=== PATIENT | female | born 1970 | race Caucasian/White ===

== ENCOUNTER 2020-03-09 04:09 | Emergency (ER) | payer MEDICAID ==
[~2020-03-09] VITALS: Ht 154.9 cm; Wt 89.4 kg
[2020-03-09 04:20] VITALS: BP 174/103
--- NOTE | 2020-03-09 04:25 | NUR ---
PT AMBULATED TO BED 12
--- NOTE | 2020-03-09 04:40 | NUR ---
49F C/O PAIN IN UPPER ABDOMEN THAT RADIATES TO UPPER BACK. NO DIARRHEA.PT HAS ONE EPISODE OF VOMITING AT 0435 TODAY AND IS NAUSEOUS. NO SOB, FEVER. PT HAS NO MED HX AND NO RX MEDS ALLX: DENIES.
[2020-03-09 05:05] LABS: APPEARANCE,URINE SL CLOUDY (CLEAR); BILIRUBIN,URINE NEGATIVE (NEGATIVE); BLOOD, URINE 2+ (NEGATIVE); COLOR,URINE YELLOW (YELLOW); LEUKOCYTE ESTERASE ,URINE TRACE (NEGATIVE); NITRITE, URINE NEGATIVE (NEGATIVE); UGLUCOSE NEGATIVE (NEGATIVE)
[2020-03-09 05:10] LABS: BASOPHILS % (AUTO) 0.4 % (0.0-2.0); EOSINOPHILS # (AUTO) 0.1 K/uL (0-0.4); HEMATOCRIT 37.6 % (36-48); HEMOGLOBIN 12.2 g/dL (12.0-16.0); LYMPHOCYTES # (AUTO) 3.7 K/uL (2.5-16.5); LYMPHOCYTES % (AUTO) 35.8 % (20.5-51.1); MEAN CORPUSCULAR HEMOGLOBIN 27 pg (27-31); MEAN CORPUSCULAR HGB CONC 33 g/dL (33-37); MEAN CORPUSCULAR VOLUME 84.3 fL (80-94); MONOCYTES # (AUTO) 0.7 K/uL (0.8-1.0); MONOCYTES % (AUTO) 7.2 % (1.7-9.3); NEUTROPHILS # (AUTO) 5.8 K/uL (1.8-7.7); NEUTROPHILS % (AUTO) 55.6 % (42.2-75.2); PLATELET COUNT (AUTO) 321 K/uL (140-450); RED BLOOD CELL COUNT(AUTO) 4.46 MIL/uL (4.20-5.40); RED CELL DISTRIBUTION WIDTH 15.8 % (11.6-13.7); WHITE BLOOD COUNT (AUTO) 10.4 K/uL (4.8-10.8)
[2020-03-09] MEDS ORDERED: MORPHINE SULFATE 4 MG/ML SYR IVP ONE (05:10)
[2020-03-09] MEDS ORDERED: ONDANSETRON 4 MG/2 ML VIAL IVP ONE (05:10)
[2020-03-09] MEDS ORDERED: KETOROLAC 15 MG/ML VIAL IVP ONE (05:10)
[2020-03-09 05:12] LABS: ALBUMIN 3.2 g/dL (3.4-5.0); ANION GAP 12.7 (8-16); CARBON DIOXIDE 28.1 mmol/L (21-32); CREATININE 0.8 mg/dL (0.6-1.3); POTASSIUM 3.8 mmol/L (3.5-5.1); TOTAL BILIRUBIN 0.2 mg/dL (0.0-1.0)
--- NOTE | 2020-03-09 05:33 | NUR ---
PT MEDICATED WITH TORADOL AND MORPHINE FOR PAIN. ZOFRAN FOR NAUSEA AND VOMITING. BED RAILS UP X1. LOWEST AND LOCKED. NO FURTHER NEEDS AT THIS TIME
[2020-03-09] MEDS ORDERED: NACL 0.9% 1,000 ML IV ONE (05:35)
--- NOTE | 2020-03-09 06:07 | NUR ---
US AT BEDSIDE.
[2020-03-09 06:29] VITALS: BP 134/77
--- NOTE | 2020-03-09 06:30 | NUR ---
PT RESTING IN BED COMFORTABLY. NO FURTHER NEEDS AT THIS TIME. BED LOWEST AND LOCKED, RAILS UP X 1. VSS
== END 2020-03-09 07:00 | disposition home or self-care (01) ==
LOC: MED 04:09
DX: K80.20 Calculus of gallbladder without cholecystitis without obstruction (principal); K76.0 Fatty (change of) liver, not elsewhere classified; I10 Essential (primary) hypertension; R73.9 Hyperglycemia, unspecified; E88.09 Other disorders of plasma-protein metabolism, not elsewhere classified
CPT/HCPCS: 36415; 76705; 80053; 81001; 81025; 83690; 84484; 85025; 87086; 93005; 96361; 96374; 96375; 99285; J1885; J2270; J2405; J7030; Q0092

== ENCOUNTER 2020-09-03 09:56 | Emergency (ER) | payer MEDICAID ==
[~2020-09-03] VITALS: Ht 154.9 cm; Wt 88.5 kg
[2020-09-03 10:03] VITALS: BP 145/94
--- NOTE | 2020-09-03 10:09 | NUR ---
Ambulated to bed 3
--- NOTE | 2020-09-03 10:17 | NUR ---
49 y/o female from home c/o epigastric pain radiating to lower back x 1 wk. Pt states 3 episodes of vomiting and diarrhea. 9/10 constant cramping pain. Abd soft, round, nontender to palp. Bowel sounds active x 4 quadrants. Positioned for comfort, VSS medhx: DM
--- NOTE | 2020-09-03 10:23 | NUR ---
Dr Berg at bedside examining pt
[2020-09-03] MEDS ORDERED: ONDANSETRON 4 MG/2 ML VIAL IVP ONE (10:30)
[2020-09-03] MEDS ORDERED: MORPHINE SULFATE 4 MG/ML SYR IVP ONE ×2 (10:30→13:10)
--- NOTE | 2020-09-03 10:35 | NUR ---
20G IV placed to left AC, blood drawn at this time.
--- NOTE | 2020-09-03 10:46 | NUR ---
Ultrasound at bedside
[2020-09-03 11:15] LABS: BASOPHILS # (AUTO) 0.1 K/uL (0.00-0.22); BASOPHILS % (AUTO) 0.7 % (0.0-2.0); EOSINOPHILS # (AUTO) 0.1 K/uL (0-0.4); EOSINOPHILS % (AUTO) 1.3 % (0.0-4.0); HEMATOCRIT 32.3 % (36-48); HEMOGLOBIN 10.3 g/dL (12.0-16.0); LYMPHOCYTES # (AUTO) 2.4 K/uL (2.5-16.5); MEAN CORPUSCULAR HEMOGLOBIN 23 pg (27-31); MEAN CORPUSCULAR HGB CONC 32 g/dL (33-37); MEAN CORPUSCULAR VOLUME 72.1 fL (80-94); MONOCYTES # (AUTO) 0.6 K/uL (0.8-1.0); MONOCYTES % (AUTO) 6.1 % (1.7-9.3); NEUTROPHILS # (AUTO) 6.5 K/uL (1.8-7.7); NEUTROPHILS % (AUTO) 66.9 % (42.2-75.2); PLATELET COUNT (AUTO) 357 K/uL (140-450); RED BLOOD CELL COUNT(AUTO) 4.47 MIL/uL (4.20-5.40); RED CELL DISTRIBUTION WIDTH 17.8 % (11.6-13.7); WHITE BLOOD COUNT (AUTO) 9.8 K/uL (4.8-10.8)
[2020-09-03 11:28] LABS: ALBUMIN 3.1 g/dL (3.4-5.0); ANION GAP 12.9 (8-16); CARBON DIOXIDE 26.6 mmol/L (21-32); CREATININE 0.7 mg/dL (0.6-1.3); POTASSIUM 3.5 mmol/L (3.5-5.1); TOTAL BILIRUBIN 0.3 mg/dL (0.0-1.0)
--- NOTE | 2020-09-03 11:33 | NUR ---
Pt resting with eyes closed, visible rise and fall of the chest. Denies pain at this time. X 1 side rail raised, bed locked and in lowest position. VSS
[2020-09-03 12:11] LABS: BILIRUBIN,URINE NEGATIVE (NEGATIVE); BLOOD, URINE TRACE-L (NEGATIVE); COLOR,URINE YELLOW (YELLOW); LEUKOCYTE ESTERASE ,URINE NEGATIVE (NEGATIVE); NITRITE, URINE NEGATIVE (NEGATIVE); PH,URINE 5.5 (5.0-9.0); UGLUCOSE NEGATIVE (NEGATIVE)
[2020-09-03 12:20] LABS: APPEARANCE,URINE SLIGHTLY HAZY (CLEAR); RBC,URINE 0-5 /HPF (0-5); WBC,URINE 0-5 /HPF (0-5)
[2020-09-03 13:59] VITALS: BP 134/78
--- NOTE | 2020-09-03 13:59 | NUR ---
IV removed, 2x2 gauze placed to IV site. Bleeding controlled at this time
--- NOTE | 2020-09-03 14:00 | NUR ---
Patient discharged with v/s stable. Written and verbal after care instructions given and explained. Patient alert, oriented and verbalized understanding of instructions. Ambulatory with steady gait. All questions addressed prior to discharge. ID band removed. Patient advised to follow up with PMD. Rx of Zofran 4mg and [place] 5mg-325mg given. Patient educated on indication of medication including possible reaction and side effects. Opportunity to ask questions provided and answered.
== END 2020-09-03 14:00 | disposition home or self-care (01) ==
LOC: MED 09:56
DX: K80.20 Calculus of gallbladder without cholecystitis without obstruction (principal); R10.13 Epigastric pain; R11.2 Nausea with vomiting, unspecified; E11.9 Type 2 diabetes mellitus without complications
CPT/HCPCS: 36415; 76705; 80053; 81001; 83690; 84703; 85025; 96374; 96375; 96376; 99284; J2270; J2405; Q0092

== ENCOUNTER 2020-09-13 18:10 | Inpatient (IN) | payer MEDICAID, SELFPAY ==
[~2020-09-13] VITALS: Ht 154.9 cm; Wt 84.8 kg
[2020-09-13 18:12] VITALS: BP 166/92
[2020-09-13] MEDS ORDERED: NACL 0.9% 1,000 ML IV ONE (18:25)
[2020-09-13] MEDS ORDERED: MORPHINE SULFATE 4 MG/ML SYR IVP ONE (18:25)
[2020-09-13] MEDS ORDERED: ONDANSETRON 4 MG/2 ML VIAL IVP ONE (18:25)
[2020-09-13 18:53] LABS: BASOPHILS % (AUTO) 0.4 % (0.0-2.0); EOSINOPHILS % (AUTO) 0.1 % (0.0-4.0); HEMATOCRIT 35.1 % (36-48); LYMPHOCYTES % (AUTO) 10.3 % (20.5-51.1); MEAN CORPUSCULAR HEMOGLOBIN 23 pg (27-31); MEAN CORPUSCULAR HGB CONC 31 g/dL (33-37); MEAN CORPUSCULAR VOLUME 72.9 fL (80-94); MONOCYTES # (AUTO) 0.5 K/uL (0.8-1.0); MONOCYTES % (AUTO) 4.9 % (1.7-9.3); NEUTROPHILS # (AUTO) 8.3 K/uL (1.8-7.7); NEUTROPHILS % (AUTO) 84.3 % (42.2-75.2); PLATELET COUNT (AUTO) 439 K/uL (140-450); RED BLOOD CELL COUNT(AUTO) 4.82 MIL/uL (4.20-5.40); RED CELL DISTRIBUTION WIDTH 18.7 % (11.6-13.7); WHITE BLOOD COUNT (AUTO) 9.8 K/uL (4.8-10.8)
--- NOTE | 2020-09-13 18:56 | NUR ---
PT STILL UNABLE TO URINATE, ERMD AWARE
--- NOTE | 2020-09-13 18:57 | NUR ---
49 YEAR OLD FEMALE COMPLAINS OF SEVERE ABDOMINAL PAIN THAT RADIATES TO BACK SINCE 3PM. PT ALSO COMPLAINS OF NAUSEA AND VOMITTING TODAY. PT STATES IT IS SIMILAR TO PREVIOUS GALLSTONE PAIN. PT AOX4, BREATHING EVEN AND UNLABORED, SKIN WARM AND DRY. BED IN LOWEST POSITION, LOCKED, BED RAIL UPX1. PMH - DM2, GALLSTONE ALLERGIES - NKA
--- NOTE | 2020-09-13 19:13 | NUR ---
REPORT GIVEN TO ROBIN WILLIAMSON, TRANSFER OF CARE AT THIS TIME.
--- NOTE | 2020-09-13 19:13 | NUR ---
RECEIVED REPORT FROM CARMEN WILLIAMSON
[2020-09-13 19:14] LABS: ALBUMIN 3.2 g/dL (3.4-5.0); ANION GAP 12.5 (8-16); CARBON DIOXIDE 28.4 mmol/L (21-32); CREATININE 0.8 mg/dL (0.6-1.3); POTASSIUM 3.9 mmol/L (3.5-5.1); TOTAL BILIRUBIN 0.9 mg/dL (0.0-1.0)
--- NOTE | 2020-09-13 19:19 | NUR ---
PT STILL C/O OF SEVERE UPPER ABD PAIN 07/02, MD Byrd AWARE.
[2020-09-13] MEDS ORDERED: KETOROLAC 30 MG/ML VIAL ONE (19:22)
--- NOTE | 2020-09-13 19:27 | NUR ---
TONI WARD EXAMINING PT
[2020-09-13] MEDS ORDERED: KETOROLAC 30 MG/ML VIAL IVP SCH (19:30)
--- NOTE | 2020-09-13 20:00 | NUR ---
PT STILL UNABLE TO PROVIDE UA. AWARE WE NEED URINE SPECIMEN
[2020-09-13] MEDS ORDERED: guaiFENesin DM 200/20 MG-10 ML 10 ML UDC PO PRN (20:05)
[2020-09-13] MEDS ORDERED: ACETAMINOPHEN 325 MG TAB PO PRN (20:05)
[2020-09-13] MEDS ORDERED: DOCUSATE SODIUM 100 MG GELCAP PO PRN (20:05)
[2020-09-13] MEDS ORDERED: HYDROcodone/APAP 7.5/325 MG 1 TAB PO PRN (20:05)
[2020-09-13] MEDS ORDERED: ZOLPIDEM 5 MG TAB PO PRN (20:05)
--- NOTE | 2020-09-13 20:11 | NUR ---
PT STATES PAIN IS BETTER AT THIS TIME
[2020-09-13] MEDS ORDERED: METF500T PO (20:16)
[2020-09-13] MEDS ORDERED: MELO7.5T11 PO (20:17)
--- NOTE | 2020-09-13 20:20 | NUR ---
X-RAY AT BEDSIDE
--- NOTE | 2020-09-13 20:24 | NUR ---
DR. MARTINEZ EXAMINING PATIENT
--- NOTE | 2020-09-13 20:27 | NUR ---
DR. LAGUNAS EXAMINING PATIENT
--- NOTE | 2020-09-13 20:32 | NUR ---
PT TAKEN TO CT
[2020-09-13 20:39] LABS: PROTHROMBIN TIME 9.4 secs (10.8-13.4)
--- NOTE | 2020-09-13 20:45 | NUR ---
PT RETURN FROM CT
--- NOTE | 2020-09-13 20:50 | NUR ---
Patient will be admitted to care of [facility]. Admited to MED/SURG. Will go to room 104B. Belongings list completed. Report to JÚNIOR WILLIAMSON.
[2020-09-13 20:52] LABS: CHOL/HDL RATIO 6.3 (1-4.5); FREE T4 (FREE THYROXINE) 1.63 ng/dL (0.76-1.46); MAGNESIUM 2.1 mg/dL (1.8-2.4); PHOSPHORUS 4.1 mg/dL (2.5-4.9); THYROID STIMULATING HORMONE 0.64 uIU/mL (0.34-3.74)
[2020-09-13 20:55] VITALS: BP 150/80
--- NOTE | 2020-09-13 20:55 | NUR ---
RECEIVED PT FROM ER / WHEEL CHAIR ,AAOX4 , NID - O2 SAT WNL . IV SITE INTACT AND PATENT . AMBULATES TO BED . SAFETY MEASURES IN PLACE , C/O ABDL. PAIN - WILL REFER TO DR. MARTINEZ . NPO - RE EMPHASIZE , ADMISSION ASSESSMENT - DONE - MRSA SPECIMEN SENT TO LAB . PLAN OF CARE DISCUSSED AND VERBALIZE UNDERSTANDING . FOR URINE COLLECTION - REMIND THE PATIENT . CALL LIGHT WITHIN REACH . WILL CONT. TO MONITOR .
[2020-09-13] MEDS: DEXT 5% /NACL 0.9% 1,000 ML IV SCH (22:00)
[2020-09-13] MEDS ORDERED: DEXTROSE 50% 50 ML SYR IVP PRN (22:20)
[2020-09-13] MEDS: MORPHINE SULFATE 2 MG/ML SYR IVP PRN (22:38)
--- NOTE | 2020-09-13 22:38 | NUR ---
MORPHINE 2 MG TIV GIVEN FOR ABDL. PAIN ORDERED BY DR. MARTINEZ - WILL RE ASSESS.
--- NOTE | 2020-09-13 23:00 | NUR ---
HGT 173 - NPO
[2020-09-13] MEDS: ONDANSETRON 4 MG/2 ML VIAL IM/IVP PRN (23:01)
[2020-09-14] VITALS: BP 150/85
[2020-09-14] MEDS ORDERED: HYDROmorphone 1 MG/ML AMP IVP SCH (00:31)
--- NOTE | 2020-09-14 00:50 | NUR ---
STILL C/O ABDL . PAIN - WE REFER TO DR. MARTINEZ .
--- NOTE | 2020-09-14 01:06 | NUR ---
DILAUDID 1MG TIV GIVEN STAT ORDERED BY DR. MARTINEZ - WILL RE ASSESS . CALL LIGHT WITHIN REACH
--- NOTE | 2020-09-14 02:00 | NUR ---
MADE ROUNDS , SHE SAID THE PAIN NOW IS MINIMIZE FROM 9 TO 6 SHE RATING THE PAIN - WILL CONT. TO MONITOR .
[2020-09-14 04:00] VITALS: BP 147/82
--- NOTE | 2020-09-14 04:00 | NUR ---
MADE ROUNDS , NO S/SX OF ACUTE DISTRSS NOTED , C/O ABDL. PAIN - WILL MEDICATE .
[2020-09-14 05:09] LABS: BASOPHILS % (AUTO) 0.2 % (0.0-2.0); EOSINOPHILS % (AUTO) 0.2 % (0.0-4.0); HEMATOCRIT 33.6 % (36-48); HEMOGLOBIN 10.6 g/dL (12.0-16.0); LYMPHOCYTES # (AUTO) 1.4 K/uL (2.5-16.5); LYMPHOCYTES % (AUTO) 14.6 % (20.5-51.1); MEAN CORPUSCULAR HEMOGLOBIN 23 pg (27-31); MEAN CORPUSCULAR HGB CONC 32 g/dL (33-37); MEAN CORPUSCULAR VOLUME 72.8 fL (80-94); MONOCYTES # (AUTO) 0.6 K/uL (0.8-1.0); MONOCYTES % (AUTO) 6.2 % (1.7-9.3); NEUTROPHILS # (AUTO) 7.7 K/uL (1.8-7.7); NEUTROPHILS % (AUTO) 78.8 % (42.2-75.2); PLATELET COUNT (AUTO) 364 K/uL (140-450); RED BLOOD CELL COUNT(AUTO) 4.61 MIL/uL (4.20-5.40); RED CELL DISTRIBUTION WIDTH 18.2 % (11.6-13.7); WHITE BLOOD COUNT (AUTO) 9.8 K/uL (4.8-10.8)
[2020-09-14] MEDS: MORPHINE SULFATE 2 MG/ML SYR IVP PRN ×3 (05:25→20:38)
[2020-09-14 05:50] LABS: ALBUMIN 2.8 g/dL (3.4-5.0); ANION GAP 18.5 (8-16); CARBON DIOXIDE 27.4 mmol/L (21-32); CREATININE 0.7 mg/dL (0.6-1.3); POTASSIUM 3.9 mmol/L (3.5-5.1); TOTAL BILIRUBIN 1.4 mg/dL (0.0-1.0)
[2020-09-14] MEDS: BLOOD GLUCOSE MONITORING 1 DEV DEV FS SCH ×4 (05:56→20:47)
--- NOTE | 2020-09-14 06:00 | NUR ---
MADE ROUNDS , SHE SAID THE PAIN MINIMIZE AT THIS TIME . NO S/SX OF ACUTE DISTRESS NOTED . CALL LIGHT WITHIN REACH .
[2020-09-14] MEDS: DEXT 5% /NACL 0.9% 1,000 ML IV SCH ×3 (06:29→20:42)
[2020-09-14 06:39] LABS: APPEARANCE,URINE BLOODY (CLEAR); BILIRUBIN,URINE 2+ (NEGATIVE); BLOOD, URINE 3+ (NEGATIVE); COLOR,URINE RED (YELLOW); LEUKOCYTE ESTERASE ,URINE 1+ (NEGATIVE); NITRITE, URINE POSITIVE (NEGATIVE); UGLUCOSE NEGATIVE (NEGATIVE)
--- NOTE | 2020-09-14 06:39 | NUR ---
PATIENT HAS BEEN SCREENED AND CATEGORIZED MODERATE NUTRITION RISK. PATIENT WILL BE SEEN WITHIN 3-5 DAYS OF ADMISSION. 09/16/20 09/18/[address]
[2020-09-14 06:42] LABS: RBC,URINE >100 /HPF (0-5); WBC,URINE 80-100 /HPF (0-5)
[2020-09-14 07:06] LABS: BARBITURATE, URINE NEGATIVE ng/ml (NEG <=200); BENZODIAZEPINE, URINE NEGATIVE ng/mL (NEG <=200); CANNABINOID, URINE NEGATIVE ng/mL (NEG <=50); COCAINE, URINE NEGATIVE ng/mL (NEG <=300); PHENCYCLIDINE SCREEN,URINE NEGATIVE ng/mL (NEG <=25)
[2020-09-14 07:07] LABS: OPIATE, URINE POSITIVE ng/mL (NEG <=2000)
--- NOTE | 2020-09-14 07:15 | NUR ---
ENDORSED TO AM SHIFT - PT - STABLE . FOR CONSENT . PREG . TEST NOT DONE - BEC. PT HAS MONTHLY PERIOD .
--- NOTE | 2020-09-14 07:15 | NUR ---
RECEIVED REPORT FROM PIT WORKER POWER SHOVEL RN FOR CONTINUITY OF CARE. PT IS STABLE. RECEIVING IVF. SAFETY MEASURES IN PLACE. WILL CONTINUE WITH POC.
[2020-09-14 08:00] VITALS: BP 162/90
[2020-09-14] MEDS: metFORMIN 500 MG TAB PO SCH ×2 (08:00→17:13)
--- NOTE | 2020-09-14 08:30 | NUR ---
PT IS AWAKE, ALERT ORIENTED X 4, REPORTING SOME DISCOMFORT. PO MEDICATION HELD DUE TO NPO STATUS. V/S: 96.9, 91, 16, 162/90, 95% RA PAIN 0/10. LUNG SOUND CLEAR, ABD IS ROUND AND TENDER TO EPIGASTRIC AND RUQ AREA. BS ACTIVE X 4 PT REMAINS NPO. SKIN INTACT PT OBSERVED WITH IV SITE LEFT AC THAT IS INTACT AND PATENT AND LEFT HAND THAT IS ALSO INTACT AND PATENT AND RECEIVING IVF. PT ASSESSED BY MEDICAL STUDENT.
[2020-09-14] MEDS: PANTOPRAZOLE 40 MG TABEC PO SCH (08:37)
--- NOTE | 2020-09-14 10:45 | NUR ---
OBTAIN CONSENT FOR PROCEDURE PT HAD NO QUESTIONS AND VERBALIZED UNDERSTANDING. B/P RECHECK WAS 164/81 P 107 WILL NOTIFY MD Phil Case HERE TO PICK HER UP. PT RECEIVED ROCEPHIN IVPB AND COVID GASTON ROUTED TO LAB. PT RECEIVED MORPHINE AT 0930 DUE TO ELEVATED PAIN 07/02. PT LEFT AT THIS TIME.
[2020-09-14] MEDS ORDERED: METOCLOPRAMIDE 10 MG/2 ML INJ VIAL ONE (11:12)
[2020-09-14] MEDS ORDERED: PROPOFOL 200 MG/20 ML VIAL IV ONE (11:12)
[2020-09-14] MEDS ORDERED: SUGAMMADEX SODIUM 200 MG/2 ML VIAL IV ONE (11:12)
[2020-09-14] MEDS ORDERED: ROCURONIUM 50 MG/5 ML VIAL IV ONE (11:12)
[2020-09-14] MEDS ORDERED: KETOROLAC 30 MG/ML VIAL ONE (11:12)
[2020-09-14] MEDS ORDERED: MIDAZOLAM 2 MG/2 ML VIAL ONE (11:12)
[2020-09-14] MEDS ORDERED: SUCCINYLCHOLINE CHLORIDE 200 MG/10 ML VIAL IVP ONE (11:12)
[2020-09-14] MEDS ORDERED: LIDOCAINE 2% 100 MG/5 ML SYR IVP ONE (11:12)
[2020-09-14] MEDS ORDERED: fentaNYL citrate 0.05 MG/ML VIAL ONE (11:12)
[2020-09-14] MEDS ORDERED: LIDOCAINE 1% 500 MG/50 ML VIAL ONE (11:20)
[2020-09-14] MEDS ORDERED: BUPIVACAINE-MPF 0.25% 30 ML VIAL INJ ONE (11:20)
--- NOTE | 2020-09-14 11:38 | NUR ---
DISCHARGE PLANNING: THIS IS A 49 Y/O FEMALE PATIENT FROM HOME, WHO CAME IN DUE TO WORSENING EPIGASTRIC PAIN. PAST MEDICAL HISTORY INCLUDE DIABETES AND KNEE ARTHRITIS. INITIAL DIAGNOSIS OF GALLSTONES, PANCREATITIS. CURRENT LABS INCLUDE WBC 9.8, H/H 10.6/33.6, NA/K 145/3.9, BUN/CREA 15/0.7. UDS SHOWED POSITIVE FOR OPIATES. ON ROCEPHIN. SURGICAL CONSULT IN PLACE. DC PLAN BACK TO HOME ONCE STABLE. Addendum: 09/18/20 at 1049 by Ivette Duval CM S/P LAP JONNY +INTRAOPERATIVE CHOLANGIOGRAM, C ARM FLUOROSCOPY AND LYSIS OF ADHESIONS BY DR. LAGUNAS 09/14/1240. ON ZOSYN. CURRENT LABS INCLUDE WBC 15.4, H/H 9.3/30.3, NA/K 138/3.4, BUN/CREA 5/0.7, LIPASE 59. BLOOD CS PENDING. CT ABD/PELVIS SHOWED EDEMA INFLAMMATION IN THE DUODENAL SWEEP WITH ADDITIONAL AREAS OF EDEMA INFLAMMATION, THIS COULD REFLECT CHANGES OF AN ACUTE PANCREATITIS. Addendum: 09/19/20 at 1102 by Ivette Duval CM FOR DC TODAY AFTER 1800 DOSE OF ANTIBIOTIC.
--- NOTE | 2020-09-14 11:41 | NUR ---
SOCIAL WORK NOTE: Patient's Orientation Unable To Assess Information Provided By GRADY FABIEN - DAUGHTER Comments SW WAS UNABLE TO MEET PATIENT AT BEDSIDE DUE TO MEDICAL CONDITION. SW COMPLETED ASSESSMENT WITH PATIENT'S DAUGHTER, GRADY. [place] Operator, Realtionship and Phone Number GRADY CONN DAUGHTER [phone] Healthcare Power of Winder Fixer No Does Patient Have a POLST No Identifying Problems No Social Work Triggers Is A Social Work Consult Needed No Mandate Report Filed No Explanation Of Identifying Problems PATIENT IS A 49-YEAR-OLD FEMALE ADMITTED FOR GALLSTONES AND PANCREATITIS. PATIENT HAS PMHX OF DIABETES. PATIENT'S DAUGHTER REPORTED NO HISTORY OF SUBSTANCE ABUSE OR MENTAL HEALTH. Admitted From Home Pre-Admission Level Of Functioning Status Independent/Ambulatory Prior Resources/Services Used In Last 12 Months No Prior Resources Used Prior DME No Prior DME Used Dialysis Comments PER DAUGHTER, DAUGHTER REPORTED NO DIALYSIS. Living Situation Lives With Family House Patient Had Caregiver No Home Support No Caregiver Issues Financial Issues No Known Financial Issue Referral To The Financial Counselor Needed No Factors/Needs No D/C Needs Identified Explanation And Or Other Factors Affecting/Possible DC Needs PATIENT'S DAUGHTER: GRADY CONN WILL PICK PATIENT UP. Pt/Rep Participated In Discharge Plan Yes Patient/Family Agress With Discharge Plan Yes Discharge Plan Comments TENTATIVE DISCHARGE PLAN IS FOR PATIENT TO RETURN HOME. DC Plan Status Initiated
[2020-09-14] MEDS ORDERED: ONDANSETRON 4 MG/2 ML VIAL IVP PRN (12:25)
[2020-09-14] MEDS ORDERED: HYDROmorphone 1 MG/ML AMP IVP PRN (12:25)
[2020-09-14 13:40] VITALS: BP 125/65
--- NOTE | 2020-09-14 13:45 | NUR ---
RETURNED AT THIS TIME PT IS STABLE IN NO DISTRESS. DENIES ANY PAIN. V/S: 97.8, 113, 18, 125/65, 95% RA PAIN 0/10 PT HAS LA CATH IN PLACE THAT IS DRAINING ADRIEL URINE. NO SOB PT VERBALIZE DESIRE TO CALL DAUGHTER. PT RECONNECTED TO IVF WITH NO ISSUES. ALL NEEDS MET
[2020-09-14 16:00] VITALS: BP 122/81
--- NOTE | 2020-09-14 16:30 | NUR ---
PT RESTING IN BED DENIES ANY DISTRESS PT HAS 4 INCISION SITES COVERED WITH BANDAGE NO DRAINING CLEAN DRY AND INTACT. V/S: 97.0, 101, 18, 122/81, 95% RA PAIN 0/10. BS 163 AND GOT 2 UNITS OF HUMALOG.
[2020-09-14] MEDS: INSULIN LISPRO SLIDING SCALE 100 UNITS/ML VIAL SUBQ PRN ×2 (17:24→21:47)
--- NOTE | 2020-09-14 18:20 | NUR ---
PT STABLE IN NO DISTRESS
--- NOTE | 2020-09-14 19:20 | NUR ---
REPORT GIVEN TO AM RN FOR CONTINUITY OF CARE. DURING REPORT PT VERBALIZED PAIN WAS STARTED WILL ENDORSE TO SUPERVISOR MOLDING TO GIVE PAIN MGMT.
--- NOTE | 2020-09-14 19:30 | NUR ---
RECEIVED REPORT AND CONTINUITY OF CARE FROM AM NURSE.
--- NOTE | 2020-09-14 21:15 | NUR ---
UPON PHYSICAL ASSESSMENT, PT IS A/OX4, RUSSIAN SPEAKING AND ABLE TO MAKE NEEDS KNOW, GCS 15. HEAD IS ROUND, NORMOCEPHALIC, FACE IS UNIFORMED, SYMMETRICAL, ALIGNED EYEBROWS AND SMILE, PMMM, SCLERA WHITE, PERRL. TRACHEA IS PLACE IN THE MIDLINE OF THE NECK, NO JVD PRESENT. CHEST IS SYMMETRICAL, LUNGS ARE CTAX4, ON INSPIRATION AND EXPIRATION. S1, S2 HEART TONES NOTED. BOWEL TONES ARE ACTIVE IN FOUR QUADRANTS. ABD IS FLAT AND NONTENDER. SKIN IS SMOOTH, WARM, DRY, AND INTACT. NAILS ARE CLEAN, INTACT, CAP REFILL IS LESS THAN 3 SECONDS, NO CLUBBING OR CYANOSIS NOTED. EQUAL AND BILATERAL PEDAL PULSES NOTED. ADMINISTERED SCHEDULED MEDICATION. EDUCATION RENDERED. SAFETY PRECAUTIONS IN PLACE.
--- NOTE | 2020-09-14 23:23 | NUR ---
PT IS SLEEPING. NO SIGNS OF DISTRESS NOTED.
--- NOTE | 2020-09-15 01:00 | NUR ---
PT SLEEPING. NO SIGNS OF DISTRESS NOTED AT THIS TIME.
[2020-09-15] MEDS: MORPHINE SULFATE 2 MG/ML SYR IVP PRN ×3 (02:01→09:41)
--- NOTE | 2020-09-15 03:15 | NUR ---
PT IS SLEEPING. VISIBLE CHEST RISE NOTED.
--- NOTE | 2020-09-15 04:38 | NUR ---
URINE CULTURE OBTAINED AND SENT TO LAB.
--- NOTE | 2020-09-15 05:51 | NUR ---
PT IS SLEEPING. NO SIGNS OF DISTRESS NOTED.
[2020-09-15] MEDS: DEXT 5% /NACL 0.9% 1,000 ML IV SCH ×3 (06:30→16:53)
[2020-09-15 06:31] LABS: BASOPHILS % (AUTO) 0.1 % (0.0-2.0); EOSINOPHILS # (AUTO) 0.1 K/uL (0-0.4); EOSINOPHILS % (AUTO) 0.4 % (0.0-4.0); HEMATOCRIT 30.7 % (36-48); HEMOGLOBIN 9.4 g/dL (12.0-16.0); LYMPHOCYTES # (AUTO) 1.2 K/uL (2.5-16.5); LYMPHOCYTES % (AUTO) 7.3 % (20.5-51.1); MEAN CORPUSCULAR HEMOGLOBIN 23 pg (27-31); MEAN CORPUSCULAR HGB CONC 31 g/dL (33-37); MEAN CORPUSCULAR VOLUME 74.2 fL (80-94); MONOCYTES # (AUTO) 0.9 K/uL (0.8-1.0); MONOCYTES % (AUTO) 5.9 % (1.7-9.3); NEUTROPHILS # (AUTO) 13.7 K/uL (1.8-7.7); NEUTROPHILS % (AUTO) 86.3 % (42.2-75.2); PLATELET COUNT (AUTO) 335 K/uL (140-450); RED BLOOD CELL COUNT(AUTO) 4.14 MIL/uL (4.20-5.40); RED CELL DISTRIBUTION WIDTH 19.1 % (11.6-13.7); WHITE BLOOD COUNT (AUTO) 15.9 K/uL (4.8-10.8)
[2020-09-15] MEDS: BLOOD GLUCOSE MONITORING 1 DEV DEV FS SCH ×4 (06:31→20:21)
--- NOTE | 2020-09-15 07:15 | NUR ---
RECEIVED PATIENT FROM NIGHT NURSE. PATIENT IN BED AWAKE AND ALERT. VIETNAMESE SPEAKING ONLY BUT ABLE TO MAKE NEEDS KNOWN. PATIENT S/P LAP JONNY. RESP EVEN AND UNLABORED ON ROOM AIR. LAC 20G, LH 24G INFUSING NS 120ML/HR. C/O PAIN TO ABDOMEN BUT TOLERABLE. PLAN OF CARE DISCUSSED WITH PATIENT, PATIENT NODDED UNDERSTANDING. CALL LIGHT WITHIN REACH. WILL CONTINUE TO MONITOR.
[2020-09-15 08:00] VITALS: BP 150/91
[2020-09-15 08:00] LABS: ALBUMIN 2.2 g/dL (3.4-5.0); ANION GAP 12.9 (8-16); CARBON DIOXIDE 24.4 mmol/L (21-32); CREATININE 0.6 mg/dL (0.6-1.3); POTASSIUM 3.3 mmol/L (3.5-5.1)
[2020-09-15 09:06] LABS: T4 (THYROXINE) 11.9 ug/dL (4.5-12.0)
[2020-09-15] MEDS: PANTOPRAZOLE 40 MG TABEC PO SCH (09:13)
[2020-09-15] MEDS: metFORMIN 500 MG TAB PO SCH ×2 (09:13→16:42)
[2020-09-15] MEDS: POTASSIUM CHLORIDE 10 MEQ TABER PO PRN (09:18)
--- NOTE | 2020-09-15 09:34 | NUR ---
MORNING ROUTINE MEDICATIONS GIVEN. PATIENT IN BED RESTING. RESP EVEN AND UNLABORED. PT C/O PAIN AT ABD AT THIS TIME WITH FACIAL GRIMACE. TACHYCARDIA NOTED 126 WITH BP 150/91. MORPHINE GIVEN PRN. LUNGS SOUNDS CLEAR, BOWEL SOUNDS HYPOACTIVE. 4 INCISIONS NOTED ON ABD S/P LAP JONNY COVERED WITH DRESSING, DRY AND INTACT. PATIENT IS ON HER MENSES AND LINEN WAS CHANGED. PATIENT WAS ASSISTED OUT OF BED AND SITTING IN CHAIR BY BEDSIDE. PATIENT ABLE TO FOLLOW COMMANDS. RAC 20G SL, RH 24G INFUSING D5NS @120ML/HR. LA NOTED WITH LIGHT ADRIEL DRAINAGE. PATIENT ABLE TO MAKE NEEDS KNOWN. CALL LIGHT WITHIN REACH. WILL CONTINUE TO MONITOR. Addendum: 09/15/20 at 0956 by Ras Herbert RN LA URINE DRAINAGE DARK YELLOW. NOT LIGHT ADRIEL.
--- NOTE | 2020-09-15 11:22 | NUR ---
PATIENT C/O PAIN TO RIGHT HAND IV ACCESS. INFILTRATION NOTED. RAC ACCESS IS ALSO INFILTRATED. NEW IV ACCESS TO LEFT HAND 18G USING ASEPTIC TECHNIQUE. PATIENT TOLERATED WELL. IV ANTIBIOTIC RESUMES. RESP EVEN AND UNLABORED ON ROOM AIR. PATIENT STATED PAIN REDUCED TO TOLERABLE LEVEL. PATIENT IS RESTING COMFORTABLE IN BED. CALL LIGHT WITHIN REACH. WILL CONTINUE TO MONITOR.
--- NOTE | 2020-09-15 13:37 | NUR ---
PATIENT SLEEPING IN BED. RESP EVEN AND UNLABORED ON ROOM AIR. SAFETY MEASURES IN PLACE. WILL CONTINUE TO MONITOR.
--- NOTE | 2020-09-15 15:10 | NUR ---
PATIENT SLEEPING IN BED. RESP EVEN AND UNLABORED ON ROOM AIR. CHEST NOTED RISING. CALL LIGHT WITHIN REACH. WILL CONTINUE TO MONITOR.
[2020-09-15 16:00] VITALS: BP 152/96
[2020-09-15 16:10] LABS: FERRITIN 17 ng/mL (15 - 150); FOLIC ACID > 20.00 ng/mL (>3.0); TRANSFERRIN 392 mg/dL (200 - 370)
[2020-09-15] MEDS: INSULIN LISPRO SLIDING SCALE 100 UNITS/ML VIAL SUBQ PRN ×2 (17:35→20:20)
--- NOTE | 2020-09-15 17:35 | NUR ---
BLOOD GLUCOSE 154, INSULIN COVERAGE PER SLIDING SCALE. PATIENT WAS ASSISTED TO SIT BY BEDSIDE WITH FEET DANGLING. PATIENT STILL NOT WANTING TO WALK AT THIS TIME, FACIAL GRIMACE NOTED UPON MOVEMENT, PATIENT DENIED OF PAIN WHEN ASKED. RESP EVEN AND UNLABORED ON ROOM AIR. CALL LIGHT WITHIN REACH. WILL CONTINUE TO MONITOR.
--- NOTE | 2020-09-15 19:10 | NUR ---
ENDORSED PATIENT TO NIGHT NURSE. PATIENT IN STABLE CONDITION.
--- NOTE | 2020-09-15 19:10 | NUR ---
RECEIVED PT AAOX4 , NID - O2 SAT WNL POST OP LAP. CHOLECYSTECTOMY - W/ 4 SURICAL INCISSIONS ON ABD. - NO SIGNS OF ACTIVE BLEEDING AT THIS TIME . TOLERABLE PAIN AT THIS TIME SHE SAID . W/ URINE LA CATH - DRAINING CLEAR YELLOW URINE . SAFETY MEASURES IN PLACE - CALL LIGHT WITHIN REACH , NO BM YET . ON CARDIAC DIET - TOLERATED . PLAN OF CARE DISCUSSED AND VERBALIZE FAIR UNDERSTANDING - NEEDS REINFORCEMENT DUE TO LANGUAGE BARRIER . WILL CONT. TO MONITOR .
--- NOTE | 2020-09-15 22:00 | NUR ---
MADE ROUNDS , NO SIGNS OF ACUTE DISTRESS NOTED - WILL CONT. TO MONITOR
[2020-09-16] VITALS: BP 144/90
[2020-09-16] MEDS: DEXT 5% /NACL 0.9% 1,000 ML IV SCH (01:00)
--- NOTE | 2020-09-16 01:00 | NUR ---
C/O PAIN - BP 145/90 , O2 SAT 94 %, RR20 , WY 77 , T 98.6 F - WILL MEDICATE ORDERED .
[2020-09-16] MEDS: MORPHINE SULFATE 2 MG/ML SYR IVP PRN ×2 (01:12→09:03)
[2020-09-16] MEDS: ONDANSETRON 4 MG/2 ML VIAL IM/IVP PRN (01:12)
--- NOTE | 2020-09-16 01:12 | NUR ---
MORPHINE 2MG/ IV GIVEN FOR PAIN - WILL CONT. TO MONITOR . CALL LIGHT WITHIN REACH
--- NOTE | 2020-09-16 04:00 | NUR ---
MADE ROUNDS , NO S/SX OF ACUTE DISTRESS NOTED AT THIS TIME . WILL CONT. TO MONITOR.
--- NOTE | 2020-09-16 06:00 | NUR ---
MADE ROUNDS , BEARABLE PAIN SHE SAID - SURGICAL SITES DRY AND INTACT - WILL CONT. TO MONITOR .
[2020-09-16 06:34] LABS: BASOPHILS % (AUTO) 0.2 % (0.0-2.0); EOSINOPHILS # (AUTO) 0.2 K/uL (0-0.4); HEMOGLOBIN 8.8 g/dL (12.0-16.0); LYMPHOCYTES # (AUTO) 1.5 K/uL (2.5-16.5); MEAN CORPUSCULAR HEMOGLOBIN 23 pg (27-31); MEAN CORPUSCULAR HGB CONC 31 g/dL (33-37); MEAN CORPUSCULAR VOLUME 73.3 fL (80-94); MONOCYTES # (AUTO) 0.9 K/uL (0.8-1.0); MONOCYTES % (AUTO) 5.5 % (1.7-9.3); NEUTROPHILS # (AUTO) 13.8 K/uL (1.8-7.7); PLATELET COUNT (AUTO) 302 K/uL (140-450); RED BLOOD CELL COUNT(AUTO) 3.83 MIL/uL (4.20-5.40); RED CELL DISTRIBUTION WIDTH 18.9 % (11.6-13.7); WHITE BLOOD COUNT (AUTO) 16.4 K/uL (4.8-10.8)
[2020-09-16 06:52] LABS: ANION GAP 12.6 (8-16); CARBON DIOXIDE 24.6 mmol/L (21-32); CREATININE 0.4 mg/dL (0.6-1.3); POTASSIUM 3.2 mmol/L (3.5-5.1)
[2020-09-16] MEDS: BLOOD GLUCOSE MONITORING 1 DEV DEV FS SCH ×4 (06:56→20:37)
[2020-09-16] MEDS: INSULIN LISPRO SLIDING SCALE 100 UNITS/ML VIAL SUBQ PRN ×4 (06:56→21:34)
--- NOTE | 2020-09-16 07:10 | NUR ---
RECEIVED PATIENT FROM NIGHT NURSE. PATIENT IN BED AWAKE AND ALERT. ABLE TO MAKE NEEDS KNOWN. PATIENT SLEPT THROUGH THE NIGHT. DENIED OF PAIN AT THIS TIME. RESP EVEN AND UNLABORED ON ROOM AIR. LH18G INFUSING WELL. PLAN OF CARE DISCUSSED WITH PATIENT. PATIENT VERBALIZED UNDERSTANDING. SAFETY MEASURES IN PLACE. WILL CONTINUE TO MONITOR.
--- NOTE | 2020-09-16 07:10 | NUR ---
ENDORSED TO AM SHIFT - PT - STABLE .
[2020-09-16 07:40] LABS: LYMPHOCYTES % (AUTO) 9.1 % (20.5-51.1); NEUTROPHILS % (AUTO) 84.2 % (42.2-75.2)
[2020-09-16 08:00] VITALS: BP 156/91
[2020-09-16] MEDS: PANTOPRAZOLE 40 MG TABEC PO SCH (08:48)
[2020-09-16] MEDS: metFORMIN 500 MG TAB PO SCH ×2 (08:49→17:47)
[2020-09-16] MEDS: POTASSIUM CHLORIDE 10 MEQ TABER PO PRN (08:49)
[2020-09-16] MEDS: DEXT 5% / NACL 0.45% 1,000 ML IV SCH (08:55)
--- NOTE | 2020-09-16 09:10 | NUR ---
MORNING ROUTINE MEDICATIONS GIVEN. PATIENT TOLERATED WELL. MORPHINE GIVEN D/T C/O PAIN TO ABD. VITALS 98.0 127 18 156/91 91% RA. DR MARTINEZ MADE AWARE OF HIGH HR AND BP. PATIENT ASSISTED TO SIT IN CHAIR BY BEDSIDE TO EAT HER BREAKFAST. PATIENT TOLERATED WELL. LH 18G INFUSING WELL. PATIENT IS ABLE TO MAKE NEEDS KNOWN. CALL LIGHT WITHIN REACH. WILL CONTINUE TO MONITOR.
[2020-09-16 09:45] LABS: ALBUMIN 2.1 g/dL (3.4-5.0); BILIRUBIN,DIRECT 0.4 mg/dL (0.0-0.3); TOTAL BILIRUBIN 0.7 mg/dL (0.0-1.0)
--- NOTE | 2020-09-16 11:25 | NUR ---
PATIENT WAS ASSISTED TO SIT IN CHAIR BY BEDSIDE. PATIENT TOLERATED WELL. STATED PAIN 4/10 TO ABDOMEN BUT TOLERABLE. NO FACIAL GRIMACE NOTED. RESP EVEN AND UNLABORED. LINEN WAS CHANGED. CALL LIGHT WITHIN REACH. WILL CONTINUE TO MONITOR.
[2020-09-16] MEDS ORDERED: CLINDAMYCIN 600 MG in DEXTROSE 5% 50 ML IV SCH (13:00)
--- NOTE | 2020-09-16 13:59 | NUR ---
PATIENT IN BED SLEEPING. CHEST NOTED RISING. NO FACIAL GRIMACE. NO ACUTE DISTRESS NOTED. CALL LIGHT WITHIN REACH. WILL CONTINUE TO MONITOR
--- NOTE | 2020-09-16 15:36 | NUR ---
PATIENT IN BED TALKING ON HER CELL PHONE. AWAKE AND ALERT. DENIED OF PAIN AT THIS TIME. ABD DRESSINGS ARE DRY AND INTACT. CALL LIGHT WITHIN REACH. WILL CONTINUE TO MONITOR.
[2020-09-16 16:00] VITALS: BP 144/93
[2020-09-16] MEDS: PIPERACILLIN/TAZOBACTAM 3.375 GM in DEXTROSE 5% 50 ML IV SCH ×2 (17:50→23:28)
--- NOTE | 2020-09-16 17:50 | NUR ---
BLOOD GLUCOSE 154. INSULIN COVERAGE GIVEN PER SLIDING SCALE. PATIENT SITTING UP IN CHAIR BY BEDSIDE AWAITING FOR DINNER TRAY. DENIED OF PAIN AT THIS TIME. RESP EVEN AND UNLABORED ON ROOM AIR. NO NOTED ACUTE DISTRESS AT THIS TIME. CALL LIGHT WITHIN REACH. WILL CONTINUE TO MONITOR.
--- NOTE | 2020-09-16 19:22 | NUR ---
ENDORSED PATIENT TO NIGHT NURSE. PATIENT IN STABLE CONDITION.
--- NOTE | 2020-09-16 19:25 | NUR ---
RECEIVED REPORT AND CONTINUITY OF CARE FROM AM NURSE.
--- NOTE | 2020-09-16 21:02 | NUR ---
UPON PHYSICAL ASSESSMENT, PT IS A/OX4, COOK ISLANDER SPEAKING AND ABLE TO MAKE NEEDS KNOW, GCS 15. HEAD IS ROUND, NORMOCEPHALIC, FACE IS UNIFORMED, SYMMETRICAL, ALIGNED EYEBROWS AND SMILE, PMMM, SCLERA WHITE, PERRL. TRACHEA IS PLACE IN THE MIDLINE OF THE NECK, NO JVD PRESENT. CHEST IS SYMMETRICAL, LUNGS ARE CTAX4, ON INSPIRATION AND EXPIRATION. S1, S2 HEART TONES NOTED. BOWEL TONES ARE ACTIVE IN UPPER ABD QUADRANTS AND HYPOACTIVE BOWEL TONES NOTED IN LOWER ABD QUADRANTS. ABD IS FLAT AND NONTENDER. SKIN IS SMOOTH, WARM, DRY, AND INTACT. NAILS ARE CLEAN, INTACT, CAP REFILL IS LESS THAN 3 SECONDS, NO CLUBBING OR CYANOSIS NOTED. EQUAL AND BILATERAL PEDAL PULSES NOTED. ADMINISTERED SCHEDULED MEDICATION. EDUCATION RENDERED. SAFETY PRECAUTIONS IN PLACE.
--- NOTE | 2020-09-16 23:30 | NUR ---
ADMINISTERED SCHEDULED MEDICATION. EDUCATION RENDERED.
[2020-09-17 01:00] VITALS: BP 140/75
--- NOTE | 2020-09-17 01:15 | NUR ---
WOUND ASSESSMENT COMPLETE. PHOTOGRAPH DONE.
--- NOTE | 2020-09-17 04:47 | NUR ---
PT IS SLEEPING. NO SIGNS OF DISTRESS NOTED.
[2020-09-17] MEDS: DEXT 5% / NACL 0.45% 1,000 ML IV SCH (04:50)
[2020-09-17] MEDS: PIPERACILLIN/TAZOBACTAM 3.375 GM in DEXTROSE 5% 50 ML IV SCH ×3 (05:57→18:27)
[2020-09-17] MEDS: INSULIN LISPRO SLIDING SCALE 100 UNITS/ML VIAL SUBQ PRN (06:43)
[2020-09-17] MEDS: BLOOD GLUCOSE MONITORING 1 DEV DEV FS SCH ×4 (06:43→20:45)
--- NOTE | 2020-09-17 07:00 | NUR ---
RECEIVED REPORT FROM SLEEVE SEWER NURSE TONI-RN. PT RESTING IN BED, AOX4-MONGOLIAN SPEAKING, ON ROOM AIR WITH LEFT HAND #24G RUNNING D5/0.45NS @50ML/HR. DISCUSSED PLAN OF CARE AND PT VERBALIZED UNDERSTANDING. S/P LAP JONNY 09/14 WITH X4 ABDOMINAL INCISIONS, CLOSED WITH DERMABOND COVERED WITH BANDAID. LA CATHETER IN PLACE. NO S/S OF RESPIRATORY DISTRESS OR DISCOMFORT NOTED AT THIS TIME. WILL CONTINUE TO MONITOR.
[2020-09-17 08:00] VITALS: BP 155/93
[2020-09-17] MEDS: metFORMIN 500 MG TAB PO SCH (08:08)
[2020-09-17] MEDS: PANTOPRAZOLE 40 MG TABEC PO SCH (08:09)
--- NOTE | 2020-09-17 08:09 | NUR ---
SCHEDULED MEDICATIONS GIVEN AND TOLERATED WELL. NO S/S OF RESPIRATORY DISTRESS OR DISCOMFORT NOTED AT THIS TIME. WILL CONTINUE TO MONITOR.
[2020-09-17 08:12] LABS: BASOPHILS % (AUTO) 0.3 % (0.0-2.0); EOSINOPHILS # (AUTO) 0.2 K/uL (0-0.4); EOSINOPHILS % (AUTO) 1.1 % (0.0-4.0); HEMATOCRIT 27.6 % (36-48); HEMOGLOBIN 8.7 g/dL (12.0-16.0); LYMPHOCYTES # (AUTO) 1.9 K/uL (2.5-16.5); LYMPHOCYTES % (AUTO) 11.2 % (20.5-51.1); MEAN CORPUSCULAR HEMOGLOBIN 23 pg (27-31); MEAN CORPUSCULAR HGB CONC 32 g/dL (33-37); MEAN CORPUSCULAR VOLUME 72.2 fL (80-94); MONOCYTES % (AUTO) 6.2 % (1.7-9.3); NEUTROPHILS # (AUTO) 13.7 K/uL (1.8-7.7); NEUTROPHILS % (AUTO) 81.2 % (42.2-75.2); PLATELET COUNT (AUTO) 358 K/uL (140-450); RED BLOOD CELL COUNT(AUTO) 3.82 MIL/uL (4.20-5.40); RED CELL DISTRIBUTION WIDTH 18.8 % (11.6-13.7); WHITE BLOOD COUNT (AUTO) 16.9 K/uL (4.8-10.8)
[2020-09-17 08:22] LABS: ANION GAP 9.6 (8-16); CARBON DIOXIDE 28.7 mmol/L (21-32); CREATININE 0.6 mg/dL (0.6-1.3); POTASSIUM 3.3 mmol/L (3.5-5.1)
--- NOTE | 2020-09-17 10:00 | NUR ---
PT RESTING IN BED. NO S/S OF RESPIRATORY DISTRESS OR DISCOMFORT NOTED AT THIS TIME. WILL CONTINUE TO MONITOR.
--- NOTE | 2020-09-17 11:30 | NUR ---
BLOOD GLUCOSE 136- NO NEED FOR INSULIN COVERAGE. NO S/S OF RESPIRATORY DISTRESS OR DISCOMFORT NOTED AT THIS TIME. WILL CONTINUE TO MONITOR.
[2020-09-17] MEDS: POTASSIUM CHLORIDE 10 MEQ TABER PO PRN (12:10)
--- NOTE | 2020-09-17 12:10 | NUR ---
K-DUR 40MEQ PILLS GIVEN AND TOLERATED WELL FOR POTASSIUM LEVELS 3.3 NO S/S OF RESPIRATORY DISTRESS OR DISCOMFORT NOTED AT THIS TIME. WILL CONTINUE TO MONITOR.
[2020-09-17] MEDS ORDERED: SODIUM FERRIC GLUCONATE 125 MG in NACL 0.9% 100 ML IV SCH (13:00)
--- NOTE | 2020-09-17 13:49 | NUR ---
FERRLECIT GIVEN AND TOLERATED WELL. NO S/S OF RESPIRATORY DISTRESS OR DISCOMFORT NOTED AT THIS TIME. WILL CONTINUE TO MONITOR.
--- NOTE | 2020-09-17 15:10 | NUR ---
IN UPPER SORBIAN: REINFORCED USE OF INCENTIVE SPIROMETRY, PT HAS BEEN EDUCATED ON BREATHING OUT, AND BREATHING IN THROUGH IS FOR FIVE SECONDS. CURRENTLY AT 500ML CAPACITY, ENCOURAGED TO REPEAT 10X/HR. PT VERBALLY UNDERSTOOD AND DEMONSTRATED USE OF IS.
--- NOTE | 2020-09-17 15:20 | NUR ---
PT. C/O PAIN AT IV SITE. SITE INFLAMED, EDEMATOUS IN APPEARANCE. STOPPED IV. REMOVED IV CATHETER. NEW IV INSERTED TO R. FOREARM 22G. REINSTATED DEXTROSE 5%/.45%NS AT 50ML/HR. PT. COMFORTABLE, SITTING IN CHAIR, CALL LIGHT WITHIN REACH Addendum: 09/17/20 at 1758 by Elizabeth Mejia RN RN IV SITE WAS LPhilHAND
[2020-09-17 16:05] VITALS: BP 136/86
--- NOTE | 2020-09-17 16:20 | NUR ---
BLOOD GLUCOSE MONITORED AT BEDSIDE.
--- NOTE | 2020-09-17 17:54 | NUR ---
20G IV CATHETER PLACED ON R. AC PER RADIOLOGY REQUEST FOR CT SCAN ABD/PELVIS. ATTEMPT x1, PT TOLERATED PROCEDURE. SITTING UP IN CHAIR. ASSESSED L.HAND POST REMOVAL OF IV CATHETER, NO INFLAMMATION, NO EDEMA, PT. DENIES PAIN ON L. HAND.
--- NOTE | 2020-09-17 18:20 | NUR ---
LA CATHETER REMOVED. PT TOLERATED PROCEDURE WELL, 200 CC CLEAR, YELLOW URINE IN BAG.
--- NOTE | 2020-09-17 18:40 | NUR ---
PT TAKEN FOR CT ABDOMEN/PELVIS WITH CONTRAST. CONSENT SIGNED WITH WASHING AND SCREENING PLANT SUPERVISOR PHONE AND DOCUMENTED.
--- NOTE | 2020-09-17 19:00 | NUR ---
ENDORSED PT CARE TO NETWORK SYSTEMS CONSULTANT NURSE PA-RN FOR CONTINUITY OF CARE. PT IN STABLE CONDITIONS AT THIS TIME.
--- NOTE | 2020-09-17 19:20 | NUR ---
RECEIVED REPORT AND CONTINUITY OF CARE FROM AM NURSE. PT RETURNED FROM CT. VITALS ASSESSED ARE FOLLOWS, BP 148/67, P89, RR22, T98, 95%. NO SIGNS OF DISTRESS AT THIS TIME.
--- NOTE | 2020-09-17 19:59 | NUR ---
PT'S DINNER TRAY WAS COLLECTED WITHOUT THE PT EATING DINNER DUE TO HER CT PROCEDURE. CALLED THE KITCHEN TO OBTAIN THE PT'S DINNER TRY BUT THE KITCHEN DID NOT VACUUM PLASTIC FORMING MACHINE OPERATOR. PT WAS PROVIDED WITH A SANDWICH, JELLO, AND A FRUIT CUP TO EAT. PT STATED THAT SHE IS OKAY WITH EATING WHAT WAS PROVIDED TO HER. PT IS IN SABLE CONDITION AT THIS TIME.
--- NOTE | 2020-09-17 21:12 | NUR ---
UPON PHYSICAL ASSESSMENT, PT IS A/OX4, SWAZI SPEAKING AND ABLE TO MAKE NEEDS KNOW, GCS 15. HEAD IS ROUND, NORMOCEPHALIC, FACE IS UNIFORMED, SYMMETRICAL, ALIGNED EYEBROWS AND SMILE, PMMM, SCLERA WHITE, PERRL. TRACHEA IS PLACE IN THE MIDLINE OF THE NECK, NO JVD PRESENT. CHEST IS SYMMETRICAL, LUNGS ARE CTAX4, OCCASIONAL WHEEZING IN LOWER LEFT LOBE AND UPPER RIGHT LOBE, S1, S2 HEART TONES NOTED. BOWEL TONES ARE ACTIVE IN UPPER ABD QUADRANTS AND HYPOACTIVE BOWEL TONES NOTED IN LOWER ABD QUADRANTS. ABD IS FLAT AND NONTENDER. SKIN IS SMOOTH, WARM, DRY, AND INTACT. NAILS ARE CLEAN, INTACT, CAP REFILL IS LESS THAN 3 SECONDS, NO CLUBBING OR CYANOSIS NOTED. EQUAL AND BILATERAL PEDAL PULSES NOTED.
--- NOTE | 2020-09-17 23:30 | NUR ---
ADMINISTERED SCHEDULED MEDICATION. EDUCATION WAS GIVEN. NO SIGNS OF DISTRESS.
[2020-09-18] VITALS: BP 142/86
[2020-09-18] MEDS: PIPERACILLIN/TAZOBACTAM 3.375 GM in DEXTROSE 5% 50 ML IV SCH ×5 (00:27→23:16)
[2020-09-18] MEDS: DEXT 5% / NACL 0.45% 1,000 ML IV SCH (00:50)
--- NOTE | 2020-09-18 01:15 | NUR ---
PT IS SLEEPING.
--- NOTE | 2020-09-18 03:12 | NUR ---
PT IS SLEEPING NO DISTRESS NOTED.
[2020-09-18 05:08] LABS: BASOPHILS # (AUTO) 0.1 K/uL (0.00-0.22); BASOPHILS % (AUTO) 0.9 % (0.0-2.0); EOSINOPHILS # (AUTO) 0.3 K/uL (0-0.4); EOSINOPHILS % (AUTO) 1.9 % (0.0-4.0); HEMATOCRIT 30.3 % (36-48); HEMOGLOBIN 9.3 g/dL (12.0-16.0); LYMPHOCYTES # (AUTO) 2.1 K/uL (2.5-16.5); LYMPHOCYTES % (AUTO) 13.4 % (20.5-51.1); MEAN CORPUSCULAR HEMOGLOBIN 23 pg (27-31); MEAN CORPUSCULAR HGB CONC 31 g/dL (33-37); MONOCYTES # (AUTO) 1.1 K/uL (0.8-1.0); MONOCYTES % (AUTO) 7.1 % (1.7-9.3); NEUTROPHILS # (AUTO) 11.8 K/uL (1.8-7.7); NEUTROPHILS % (AUTO) 76.7 % (42.2-75.2); PLATELET COUNT (AUTO) 422 K/uL (140-450); RED BLOOD CELL COUNT(AUTO) 4.14 MIL/uL (4.20-5.40); RED CELL DISTRIBUTION WIDTH 19.1 % (11.6-13.7); WHITE BLOOD COUNT (AUTO) 15.4 K/uL (4.8-10.8)
[2020-09-18 05:24] LABS: ANION GAP 10.1 (8-16); CARBON DIOXIDE 30.3 mmol/L (21-32); CREATININE 0.7 mg/dL (0.6-1.3); POTASSIUM 3.4 mmol/L (3.5-5.1)
[2020-09-18 05:30] LABS: MAGNESIUM 2.1 mg/dL (1.8-2.4); PHOSPHORUS 3.7 mg/dL (2.5-4.9)
--- NOTE | 2020-09-18 05:30 | NUR ---
ADMINISTERED SCHEDULED MEDICATION. EDUCATION RENDERED.
[2020-09-18] MEDS: BLOOD GLUCOSE MONITORING 1 DEV DEV FS SCH ×4 (06:45→20:04)
--- NOTE | 2020-09-18 07:43 | NUR ---
RECEIVED REPORT FROM CYLINDER DYER RN FOR CONTINUITY OF CARE. PATIENT IS AWAKE, AAOX4. ABLE TO MAKE NEEDS KNOWN. RESPIRATORY EVEN AND UNLABORED. SKIN WARM AND DRY, INTACT. IV SITE RIGHT FOREARM 22G INFUSING D5 1/2 NS @ 50 CC/HR. ABDOMEN SOFT AND NON TENDER. PLAN OF CARE DISCUSSED. SAFETY MEASURES IN PLACE, WILL CONTINUE TO MONITOR.
--- NOTE | 2020-09-18 07:43 | NUR ---
ENDORSED CARE TO AM NURSE. PT IS IN STABLE CONDITION.
[2020-09-18 08:00] VITALS: BP 141/91
[2020-09-18] MEDS: PANTOPRAZOLE 40 MG TABEC PO SCH (08:21)
[2020-09-18] MEDS: FERROUS SULFATE 325 MG TABEC PO SCH (08:21)
[2020-09-18] MEDS: ASCORBIC ACID 500 MG TAB PO SCH (08:21)
[2020-09-18] MEDS: POTASSIUM CHLORIDE 10 MEQ TABER PO PRN (08:22)
--- NOTE | 2020-09-18 08:24 | NUR ---
SCHEDULED MORNING MEDICATION GIVEN, K DUR GIVEN FOR POTASSIUM LEVEL 3.4. EDUCATION PROVIDED, PATIENT TOLERATED WELL. SAFETY MEASURES IN PLACE, WILL CONTINUE TO MONITOR.
[2020-09-18 09:08] LABS: AMYLASE 42 U/L (25-115); LIPASE 59 U/L (73-393)
[2020-09-18] MEDS: NACL 0.9% 1,000 ML IV SCH ×2 (09:16→17:59)
--- NOTE | 2020-09-18 11:24 | NUR ---
PATIENT SLEEPING IN BED WITH NO ACUTE DISTRESS. BLOOD GLUCOSE LEVEL CHECKED. 107Mg/dL. NO INSULIN COVERAGE NEEDED AT THIS TIME. SAFETY MEASURES IN PLACE, WILL CONTINUE TO MONITOR.
--- NOTE | 2020-09-18 11:50 | NUR ---
IV ZOSYN GIVEN VIA IVPB, EDUCATION PROVIDED, PATIENT TOLERATED WELL. SAFETY MEASURES IN PLACE, WILL CONTINUE TO MONITOR.
--- NOTE | 2020-09-18 14:01 | NUR ---
09/18/20 RD INITIAL ASSESSMENT COMPLETED PLEASE REFER TO NUTRITION ASSESSMENT UNDER CARE ACTIVITY FOR ESTIMATED NUTRITIONAL NEEDS. 1. RECOMMENDED CCHO 60GM DIET TOLERATED 2. RECOMMENDED GLUCERNA BID 3. RD PROVIDED DIABETES AND CONSISTENT CARBOHYDRATE INTAKE EDUCATION 4. RD TO FOLLOW-UP 3-5 DAYS, MODERATE RISK COLE COOPER, RD
[2020-09-18 16:00] VITALS: BP 139/80
--- NOTE | 2020-09-18 17:27 | NUR ---
BLOOD GLUCOSE LEVEL 113, NO INSULIN COVERAGE NEEDED AT THIS TIME. PATIENT DENIES PAIN OR DISCOMFORT. SAFETY MEASURES IN PLACE, WILL CONTINUE TO MONITOR.
--- NOTE | 2020-09-18 19:10 | NUR ---
RECEIVED REPORT FROM DAY RNRADHA. PT AOX4 ON ROOM AIR, SITTING ON CHAIR, TALKING WITH DAUGHTER OVER THE PHONE. RESPIRATIONS EVEN AND UNLABORED. NO C/O PAIN AT THIS TIME. SKIN WARM DRY INTACT. IV SITE RAC 20G, PATENT AND INTACT, INFUSING NS AT 120 ML/HR. PLAN OF CARE DISCUSSED. PT VERBALIZED UNDERSTANDING. SAFETY MEASURES IN PLACE. CALL LIGHT WITHIN REACH. WILL CONTINUE TO MONITOR.
--- NOTE | 2020-09-18 19:10 | NUR ---
ENDORSED STABLE PATIENT TO MATTRESS STUFFER RN FOR CONTINUITY OF CARE.
[2020-09-18] MEDS: INSULIN LISPRO SLIDING SCALE 100 UNITS/ML VIAL SUBQ PRN (20:04)
--- NOTE | 2020-09-18 20:08 | NUR ---
PT BLOOD SUGAR 168. ADMINISTERED 2 UNITS INSULIN SUBQ PER SLIDING SCALE. PT TOLERATED WELL. WILL CONTINUE TO MONITOR
--- NOTE | 2020-09-18 23:01 | NUR ---
PT AWAKE IN BED. DENIES PAIN. NO DISTRESS NOTED. WILL CONTINUE TO MONITOR
--- NOTE | 2020-09-18 23:31 | NUR ---
ADMINISTERED IV ZOSYN. EDUCATION PROVIDED. PT TOLERATED WELL. WILL CONTINUE TO MONITOR
[2020-09-19] VITALS: BP 139/80
--- NOTE | 2020-09-19 00:15 | NUR ---
PT ASLEEP IN BED. RESPIRATIONS EVEN AND UNLABORED. NO DISTRESS NOTED. WILL CONTINUE TO MONITOR
[2020-09-19] MEDS: NACL 0.9% 1,000 ML IV SCH ×2 (01:35→05:01)
--- NOTE | 2020-09-19 02:34 | NUR ---
PT ASLEEP IN BED. NO DISTRESS NOTED. WILL CONTINUE TO MONITOR
--- NOTE | 2020-09-19 04:45 | NUR ---
PT SLEEPING IN BED COMFORTABLY. RESPIRATIONS EVEN AND UNLABORED. NO DISTRESS NOTED. WILL CONTINUE TO MONITOR
[2020-09-19] MEDS: PIPERACILLIN/TAZOBACTAM 3.375 GM in DEXTROSE 5% 50 ML IV SCH ×3 (05:07→17:03)
[2020-09-19 05:11] LABS: HEMATOCRIT 25.8 % (36-48); HEMOGLOBIN 8.1 g/dL (12.0-16.0); MEAN CORPUSCULAR HEMOGLOBIN 23 pg (27-31); MEAN CORPUSCULAR HGB CONC 31 g/dL (33-37); MEAN CORPUSCULAR VOLUME 72.7 fL (80-94); PLATELET COUNT (AUTO) 372 K/uL (140-450); RED BLOOD CELL COUNT(AUTO) 3.55 MIL/uL (4.20-5.40); RED CELL DISTRIBUTION WIDTH 18.3 % (11.6-13.7); WHITE BLOOD COUNT (AUTO) 13.3 K/uL (4.8-10.8)
[2020-09-19 05:40] LABS: ANION GAP 10.8 (8-16); CREATININE 0.7 mg/dL (0.6-1.3); MAGNESIUM 1.9 mg/dL (1.8-2.4); PHOSPHORUS 3.9 mg/dL (2.5-4.9); POTASSIUM 3.8 mmol/L (3.5-5.1)
[2020-09-19] MEDS: BLOOD GLUCOSE MONITORING 1 DEV DEV FS SCH ×3 (06:03→16:56)
--- NOTE | 2020-09-19 06:05 | NUR ---
PT BLOOD SUGAR 126. NO INSULIN COVERAGE NEEDED PER SLIDING SCALE.
[2020-09-19 06:44] LABS: LYMPHOCYTES % (MANUAL) 20 % (20-46); MONOCYTES % (MANUAL) 7 % (5-12)
--- NOTE | 2020-09-19 07:00 | NUR ---
ENDORSED PT TO DAY RN FOR CONTINUITY OF CARE. PT IS IN STABLE CONDITION
--- NOTE | 2020-09-19 07:05 | NUR ---
RECEIVED REPORT FROM [employer] MANAGER RN FOR CONTINUITY OF CARE. PATIENT RESTING IN BED, AAOX4, NO PAIN COMPLAINED. RESPIRATORY EVEN AND UNLABORED. IV INFUSING ORDERED. SKIN WARM AND DRY. ABDOMEN SOFT. NON TENDER, INCISION SITE DRY AND CLEAN, NO S/S OF INFECTION NOTED. PLAN OF CARE DISCUSSED. SAFETY MEASURES IN PLACE, WILL CONTINUE TO MONITOR.
[2020-09-19 08:00] VITALS: BP 135/73
[2020-09-19] MEDS: FERROUS SULFATE 325 MG TABEC PO SCH (08:35)
[2020-09-19] MEDS: PANTOPRAZOLE 40 MG TABEC PO SCH (08:35)
[2020-09-19] MEDS: ASCORBIC ACID 500 MG TAB PO SCH (08:36)
--- NOTE | 2020-09-19 08:39 | NUR ---
SCHEDULED MORNING MEDICATION GIVEN, EDUCATION PROVIDED, PATIENT TOLERATED WELL. SAFETY MEASURES IN PLACE, WILL CONTINUE TO MONITOR.
[2020-09-19] MEDS ORDERED: AMOX-999 PO (10:00)
[2020-09-19] MEDS ORDERED: FERR325E14 PO (10:00)
--- NOTE | 2020-09-19 11:02 | NUR ---
MADE ROUNDS. PATIENT RESTING IN CHAIR. NO ACUTE DISTRESS NOTED AT THIS TIME. SAFETY MEASURES IN PLACE, CALL LIGHT WITHIN REACH. WILL CONTINUE TO MONITOR.
[2020-09-19] MEDS: INSULIN LISPRO SLIDING SCALE 100 UNITS/ML VIAL SUBQ PRN (11:24)
--- NOTE | 2020-09-19 11:24 | NUR ---
2 UNITS OF HUMALOG GIVEN FOR BLOOD GLUCOSE LEVEL 154. EDUCATION PROVIDED. PATIENT COMPLAINT OF LEFT HAND NEAR WRIST PAIN, MILD SWOLLEN. PER PATIENT, THAT WAS IV SITE AND IV WAS REMOVED 3 DAY AGO, IT STATED HURT SINCE THIS MORNING. PROVIDED ICE PACK TO REDUCE THE PAIN. NO PAIN MED NEEDED AT THIS TIME. WILL CONTINUE TO MONITOR.
[2020-09-19 13:44] LABS: ALBUMIN 2.2 g/dL (3.4-5.0); ANION GAP 10.3 (8-16); CARBON DIOXIDE 28.5 mmol/L (21-32); CREATININE 0.7 mg/dL (0.6-1.3); POTASSIUM 3.8 mmol/L (3.5-5.1); TOTAL BILIRUBIN 0.3 mg/dL (0.0-1.0)
--- NOTE | 2020-09-19 14:30 | NUR ---
ENDORSED PATIENT TO DAY SHIFT NURSE LILLIAN FOR CONTINUITY OF CARE
--- NOTE | 2020-09-19 14:31 | NUR ---
RECEIVED REPORT FROM DAY SHIFT NURSE. PT RESTING IN BED, AOX4- ECU[place]ORE[place] SPEAKING, ON ROOM AIR WITH RIGHT FA #22G RUNNING NS @120ML/HR. DISCUSSED PLAN OF CARE AND PT VERBALIZED UNDERSTANDING. CALL LIGHT WITHIN REACH. NO S/S OF RESPIRATORY DISTRESS OR DISCOMFORT NOTED AT THIS TIME. WILL CONTINUE TO MONITOR.
[2020-09-19 16:00] VITALS: BP 125/57
--- NOTE | 2020-09-19 16:30 | NUR ---
BLOOD GLUCOSE 118- NO INSULIN COVERAGE GIVEN AND TOLERATED WELL. CALL LIGHT WITHIN REACH. NO S/S OF RESPIRATORY DISTRESS OR DISCOMFORT NOTED AT THIS TIME. WILL CONTINUE TO MONITOR.
--- NOTE | 2020-09-19 17:03 | NUR ---
SCHEDULED MEDICATIONS GIVEN AND TOLERATED WELL. CALL LIGHT WITHIN REACH. NO S/S OF RESPIRATORY DISTRESS OR DISCOMFORT NOTED AT THIS TIME. WILL CONTINUE TO MONITOR.
[2020-09-19 17:05] VITALS: BP 125/57
--- NOTE | 2020-09-19 19:00 | NUR ---
PT SIGNED DISCHARGE PAPERWORK. IV REMOVED-CANNULA INTACT. ID BANDS REMOVED. PT TOLERATED WELL. TOOK PT TO FRONT LOBBY VIA WHEELCHAIR WHERE FAMILY WAS WAITING FOR PT. PT IN STABLE CONDITION AT THIS TIME.
== END 2020-09-19 19:00 | disposition home or self-care (01) | DRG 263 ==
LOC: MED 18:10 → MTU 19:53
PROVIDERS: ADMIT Family Medicine; ATTEND Family Medicine
PROC: BF131ZZ Fluoroscopy of Gallbladder and Bile Ducts using Low Osmolar Contrast (ICD-10-PCS; 2020-09-14)
PROC: 0FT44ZZ Resection of Gallbladder, Percutaneous Endoscopic Approach (ICD-10-PCS; principal; 2020-09-14 10:40)
DX: K80.00 Calculus of gallbladder with acute cholecystitis without obstruction (principal); K85.10 Biliary acute pancreatitis without necrosis or infection; Z68.35 Body mass index [BMI] 35.0-35.9, adult; E44.1 Mild protein-calorie malnutrition; N39.0 Urinary tract infection, site not specified; Z20.828 Contact with and (suspected) exposure to other viral communicable diseases; E11.9 Type 2 diabetes mellitus without complications; M17.12 Unilateral primary osteoarthritis, left knee; E78.5 Hyperlipidemia, unspecified; E66.9 Obesity, unspecified; D50.9 Iron deficiency anemia, unspecified; E87.6 Hypokalemia; R18.8 Other ascites; K83.8 Other specified diseases of biliary tract; Z79.84 Long term (current) use of oral hypoglycemic drugs; Z79.899 Other long term (current) drug therapy
CPT/HCPCS: 36415; 71045; 74300; 76705; 80048; 80053; 80076; 80305; 81001; 82150; 82272; 82374; 82607; 82728; 82746; 82948; 83036; 83540; 83690; 83735; 83880; 84100; 84436; 84439; 84443; 84479; 84484; 85025; 85045; 85610; 85730; 86886; 86900; 86901; 87040; 87081; 87086; 88304; 93005; 96361; 96374; 97110; 97116; 97161-GP; 97530; 99285; C1887; J0330; J0696; J1170; J1885; J2001; J2250; J2270; J2405; J2543; J2704; J2765; J2916; J3010; J3490; J7030; J7042; J7060; Q0092; Q9967

== ENCOUNTER 2021-10-11 23:16 | Emergency (ER) | payer MEDICAID, SELFPAY ==
[~2021-10-11] VITALS: Ht 157.5 cm; Wt 85.7 kg
[~2021-10-11 23:16] MED LIST: AMOX-999 PO; FERR325E14 PO; MELO7.5T11 PO; METF500T PO
[2021-10-11 23:23] VITALS: BP 162/105
--- NOTE | 2021-10-11 23:30 | NUR ---
patient to bed 4
--- NOTE | 2021-10-11 23:30 | NUR ---
Merle yi in [facility] - 10/11/21 at 2330 by MEDLARON patient to bed 2
--- NOTE | 2021-10-11 23:31 | NUR ---
patient to the bathroom for urine collection
[2021-10-11] MEDS ORDERED: lisinopriL 20 MG TAB PO ONE (23:45)
--- NOTE | 2021-10-11 23:50 | NUR ---
PATIENT BIB SELF, STATES SHE CHECKED HER BP PRIOR TO COMING AND WAS ELEVATED TO 145/85. STATES SHE HAS HEADACHE RATES PAIN /10. HAS NAUSEA BUT NO VOMITING. PATIENT IN NO APPARENT ACUTE DISTRESS, BREATHING EVEN AND UNLABORED. WILL CONTINUE TO MONITOR AND FOLLOW POC. PMH: DM ON METFORMIN 500 MG BID.
--- NOTE | 2021-10-12 00:01 | NUR ---
PO ZESTRIL GIVEN TO PATIENT. PATIENT TOLERATED WELL. WILL CONTINUE TO MONITOR.
[2021-10-12 00:03] LABS: BASOPHILS % (AUTO) 0.5 % (0.0-2.0); EOSINOPHILS # (AUTO) 0.2 K/uL (0-0.4); EOSINOPHILS % (AUTO) 2.7 % (0.0-4.0); HEMATOCRIT 28.7 % (36-48); HEMOGLOBIN 8.7 g/dL (12.0-16.0); LYMPHOCYTES # (AUTO) 2.7 K/uL (2.5-16.5); MEAN CORPUSCULAR HEMOGLOBIN 19 pg (27-31); MEAN CORPUSCULAR HGB CONC 30 g/dL (33-37); MEAN CORPUSCULAR VOLUME 63.5 fL (80-94); MONOCYTES # (AUTO) 0.6 K/uL (0.8-1.0); MONOCYTES % (AUTO) 6.8 % (1.7-9.3); NEUTROPHILS # (AUTO) 5.2 K/uL (1.8-7.7); PLATELET COUNT (AUTO) 405 K/uL (140-450); RED BLOOD CELL COUNT(AUTO) 4.52 MIL/uL (4.20-5.40); RED CELL DISTRIBUTION WIDTH 21.1 % (11.6-13.7); WHITE BLOOD COUNT (AUTO) 8.9 K/uL (4.8-10.8)
[2021-10-12 00:12] LABS: BILIRUBIN,URINE NEGATIVE (NEGATIVE); BLOOD, URINE NEGATIVE (NEGATIVE); LEUKOCYTE ESTERASE ,URINE 1+ (NEGATIVE); NITRITE, URINE NEGATIVE (NEGATIVE); UGLUCOSE NEGATIVE (NEGATIVE)
[2021-10-12 00:20] LABS: ALBUMIN 3.2 g/dL (3.4-5.0); ANION GAP 12.9 (8-16); CARBON DIOXIDE 28.8 mmol/L (21-32); CREATININE 0.6 mg/dL (0.6-1.3); POTASSIUM 3.7 mmol/L (3.5-5.1); TOTAL BILIRUBIN 0.3 mg/dL (0.0-1.0)
[2021-10-12 00:32] LABS: APPEARANCE,URINE SLIGHTLY HAZY (CLEAR); COLOR,URINE STRAW (YELLOW)
[2021-10-12 00:34] LABS: RBC,URINE 0-5 /HPF (0-5)
--- NOTE | 2021-10-12 01:00 | NUR ---
PATIENT AMBULATED TO THE BATHROOM. STEADY GAIT, NO SIGNS OF ACUTE DISTRESS.
[2021-10-12] MEDS ORDERED: NITROFURANTOIN 100 MG CAP PO ONE (01:15)
[2021-10-12] MEDS ORDERED: NITR100C7 PO (01:53)
[2021-10-12] MEDS ORDERED: LISI20TA29 PO (01:53)
[2021-10-12] MEDS ORDERED: LISI10TA30 PO (02:05)
[2021-10-12] MEDS ORDERED: NACL 0.9% 500 ML IV ONE (02:05)
--- NOTE | 2021-10-12 02:25 | NUR ---
LEFT FOREARM 22 GAUGE IV PLACED, STARTED NS 0.9% BOLUS 500 MLS. PATIENT IN STABLE CONDITION, IN NO APPARENT ACUTE DISTRESS. BP 77/60, ED DR. ANDRADE AT BEDSIDE AWARE OF LOW BP. WILL CONTINUE TO MONITOR AND FOLLOW POC. ALL SAFETY MEASURES IN PLACE.
[2021-10-12] MEDS ORDERED: LISI5TAB18 PO (03:32)
[2021-10-12 03:40] VITALS: BP 101/62
== END 2021-10-12 03:40 | disposition home or self-care (01) ==
LOC: MED 23:16
DX: I10 Essential (primary) hypertension (principal); N39.0 Urinary tract infection, site not specified; E11.9 Type 2 diabetes mellitus without complications; Z79.899 Other long term (current) drug therapy; Z79.2 Long term (current) use of antibiotics
CPT/HCPCS: 36415; 80053; 81001; 82948; 84484; 85025; 87086; 93005; 96360; 99284; J7030

== ENCOUNTER 2024-08-16 22:43 | Emergency (ER) | payer MEDICAID, OTHER ==
[~2024-08-16] VITALS: Ht 154.9 cm; Wt 77.1 kg
[~2024-08-16 22:43] MED LIST changes: +LISI5TAB18 PO; +METF-346 PO; -METF500T PO; +NITR100C7 PO
[2024-08-16 22:59] VITALS: BP 143/78; PULSE 72; RESP 16; TEMP 98.2; O2SAT 99
[2024-08-17] MEDS ORDERED: NAPR-337 PO (00:59)
[2024-08-17] MEDS: KETOROLAC 60 MG/2 ML VIAL IM ONE (01:00)
== END 2024-08-17 01:00 | disposition home or self-care (01) ==
LOC: MED 22:43
DX: S13.9XXA Sprain of joints and ligaments of unspecified parts of neck, initial encounter (principal); E11.9 Type 2 diabetes mellitus without complications; M19.90 Unspecified osteoarthritis, unspecified site; Z79.899 Other long term (current) drug therapy; X58.XXXA Exposure to other specified factors, initial encounter; Y92.89 Other specified places as the place of occurrence of the external cause; Y93.89 Activity, other specified; Y99.8 Other external cause status
CPT/HCPCS: 96372; 99283; J1885